=== PATIENT | female | born 1960 | race Two or more races ===

== ENCOUNTER 2018-10-27 05:18 | Day surgery (SDC) | payer OTHER ==
[~2018-10-27 05:18] MED LIST: ACTOS30 MG PO; ADULT LOW DOSE81 M1 PO; ATORVASTATIN CA80 MG PO; BRILINTA90 MG PO; COD LIVER OIL1 EACH PO; FOSAMAX70 MG PO; GABAPENT PO; JANUMET XR 1001 EACH PO; OMEGA PO; TRIGLIDE160 MG PO; ZESTRIL2.5 MG PO; [UNRECOGNIZED DRUG - OTHER] PO
== END 2018-10-27 13:50 | disposition home or self-care (01) ==
LOC: CIR.AMB 05:18
DX: N84.0 Polyp of corpus uteri (principal)

== ENCOUNTER → 2024-09-30 12:36 | Outpatient (CLI) | payer OTHER ==
[2024-09-30 14:03] LABS: CREATININE SERUM 1.02 mg/dL (0.55-1.02)
== END | disposition home or self-care (01) ==
LOC: LAB 12:36
PROVIDERS: ATTEND Radiology Diagnostic Radiology
DX: C53.9 Malignant neoplasm of cervix uteri, unspecified (principal)

== ENCOUNTER 2024-10-05 07:35 | Outpatient (CLI) | payer OTHER | END 2024-10-05 07:49 | disposition home or self-care (01) | LOC: MRI 07:35 | PROVIDERS: ATTEND Specialist | DX: C53.9 Malignant neoplasm of cervix uteri, unspecified (principal) | CPT/HCPCS: 72197 ==

== ENCOUNTER 2025-02-25 07:25 | Outpatient (CLI) | payer OTHER ==
[2025-02-25 07:53] LABS: BASO % 1.2 % (0.1-1.2); EOS % 3.9 % (0.7-7.0); HEMOGLOBIN 11.8 g/dL (11.2-15.7); LYMPH # 1.23 (1.18-3.74); LYMPH % 23.8 % (19.3-53.1); MEAN CORPUSCULAR HEMOGLOBIN 31.1 pg (25.6-32.2); MONO # 0.42 (0.24-0.82); MONO % 8.1 % (4.7-12.5); NEUT # 3.24 (1.56-6.13); NEUT % 62.6 % (34.0-71.1); PLATELET COUNT 260 K/uL (163-369); RED CELL DISTRIBUTION WIDTH 13.8 % (11.6-14.4)
[2025-02-25 08:16] LABS: URINE APPEARANCE Clear; URINE BILIRRUBIN Negative (NEGATIVE); URINE BLOOD Negative; URINE COLOR Yellow; URINE GLUCOSE Negative (NEGATIVE); URINE KETONE Negative (NEGATIVE); URINE LEUKOCYTE Negative; URINE NITRATE Negative; URINE PROTEIN Negative (NEGATIVE); URINE UROBILINOGEN 0.2 E.U./dl
[2025-02-25 08:20] LABS: URINE BACTERIA 37.9 uL (0.0-1933); URINE EPITHELIAL CELLS 5.5 uL (0.0-38.8); URINE WBC 11.9 uL (0.0-23.2)
[2025-02-25 08:22] LABS: URINE RBC 1.6 uL (0.0-20.8)
[2025-02-25 09:02] LABS: ALBUMIN 3.6 gm/dL (3.4-5.0); BILIRUBIN TOTAL 0.51 mg/dL (0.3-1.2); CALCIUM 9.7 mg/dL (8.5-10.1); CHOL HDL RATIO 3.6 (0-5.0); CREATININE SERUM 0.96 mg/dL (0.55-1.02); GFR 58.7; GLOBULINA 2.9 G/DL (2.4-3.5); POTASSIUM 4.88 mEq/L (3.5-5.1); TOTAL PROTEIN 6.5 gm/dL (6.4-8.2); TSH 4.36 uIU/mL (0.358-3.74)
== END 2025-02-25 07:29 | disposition home or self-care (01) ==
LOC: LAB 07:25
DX: I11.9 Hypertensive heart disease without heart failure (principal); Z95.5 Presence of coronary angioplasty implant and graft; I25.10 Atherosclerotic heart disease of native coronary artery without angina pectoris; E78.5 Hyperlipidemia, unspecified; E11.9 Type 2 diabetes mellitus without complications

== ENCOUNTER → 2025-04-06 08:01 | Outpatient (CLI) | payer OTHER ==
[2025-04-06 09:11] LABS: BASO % 0.9 % (0.1-1.2); EOS # 0.20 (0.04-0.54); EOS % 3.7 % (0.7-7.0); LYMPH # 1.14 (1.18-3.74); LYMPH % 21.2 % (19.3-53.1); MEAN PLATELET VOLUME 11.10 fl (9.4-12.4); MONO # 0.48 (0.24-0.82); MONO % 8.9 % (4.7-12.5); NEUT # 3.48 (1.56-6.13); NEUT % 64.7 % (34.0-71.1); RED CELL DISTRIBUTION WIDTH 13.6 % (11.6-14.4)
[2025-04-06 09:49] LABS: ALT/SGPT 26.0 U/L (12-78); AST/SGOT 15.0 U/L (15-37); BILIRUBIN TOTAL 0.4 mg/dL (0.3-1.2); BUN CREA RATIO 24.0 (7.0-25.0); CREATININE SERUM 1.07 mg/dL (0.55-1.02); GFR 51.79; GLOBULINA 3.1 G/DL (2.4-3.5); GLUCOSE FASTING 190.0 mg/dL (65-100); OSMOLALITY SERUM 295.0 MOSM/KG (275-295)
== END | disposition home or self-care (01) ==
LOC: LAB 08:01
PROVIDERS: ATTEND Internal Medicine
DX: C53.9 Malignant neoplasm of cervix uteri, unspecified (principal); N18.6 End stage renal disease; D64.9 Anemia, unspecified

== ENCOUNTER 2025-05-28 08:05 | Outpatient (CLI) | payer OTHER | END 2025-05-28 08:15 | disposition home or self-care (01) | LOC: SONOGRAMA 08:05 | DX: E03.9 Hypothyroidism, unspecified (principal) ==

== ENCOUNTER → 2025-08-12 08:50 | Outpatient (CLI) | payer OTHER ==
[2025-08-12 09:30] LABS: URINE APPEARANCE Clear; URINE BILIRRUBIN Negative (NEGATIVE); URINE BLOOD Negative; URINE COLOR Yellow; URINE KETONE Negative (NEGATIVE); URINE LEUKOCYTE Negative; URINE NITRATE Negative; URINE PROTEIN Negative (NEGATIVE); URINE UROBILINOGEN 0.2 E.U./dl
[2025-08-12 09:31] LABS: URINE BACTERIA 32.0 uL (0.0-1933); URINE EPITHELIAL CELLS 6.1 uL (0.0-38.8); URINE WBC 18.2 uL (0.0-23.2)
[2025-08-12 09:33] LABS: URINE CAST 0.00 uL (0.0-1.40); URINE GLUCOSE 500 MG/DL (NEGATIVE); URINE RBC 0.7 uL (0.0-20.8)
[2025-08-12 09:48] LABS: BASO % 1.2 % (0.1-1.2); EOS # 0.16 (0.04-0.54); EOS % 2.8 % (0.7-7.0); LYMPH # 1.22 (1.18-3.74); LYMPH % 21.4 % (19.3-53.1); MEAN PLATELET VOLUME 11.00 fl (9.4-12.4); MONO # 0.55 (0.24-0.82); MONO % 9.6 % (4.7-12.5); NEUT # 3.66 (1.56-6.13); NEUT % 64.1 % (34.0-71.1); RED CELL DISTRIBUTION WIDTH 13.4 % (11.6-14.4)
[2025-08-12 11:02] LABS: ALT/SGPT 28.0 U/L (12-78); AST/SGOT 20.0 U/L (15-37); BILIRUBIN TOTAL 0.34 mg/dL (0.3-1.2); BUN CREA RATIO 18.0 (7.0-25.0); CHOL HDL RATIO 4.8 (0-5.0); CREATININE SERUM 0.94 mg/dL (0.55-1.02); GFR 59.95; GLOBULINA 3.2 G/DL (2.4-3.5); GLUCOSE FASTING 154.0 mg/dL (65-100); HDL 31.0 mg/dl (40-60); LDL 87.0 mg/dl (0-130); OSMOLALITY SERUM 290.0 MOSM/KG (275-295); TSH 4.45 uIU/mL (0.358-3.74); VLDL 29.0 (0-39)
== END | disposition home or self-care (01) ==
LOC: LAB 08:50
DX: I11.9 Hypertensive heart disease without heart failure (principal); E11.9 Type 2 diabetes mellitus without complications; E28.8 Other ovarian dysfunction; Z95.5 Presence of coronary angioplasty implant and graft